=== PATIENT | male | born 1995 | race Two or more races ===

== ENCOUNTER 2022-12-05 02:56 | Emergency (ER) | payer MEDICAID, OTHER ==
[~2022-12-05] VITALS: Ht 172.7 cm; Wt 63.5 kg
[2022-12-05 03:00] VITALS: TEMP 98
[2022-12-05] MEDS ORDERED: NALO4SPR BNOSTRILS (06:17)
[2022-12-05 06:48] VITALS: BP 122/81; O2SAT 97
== END 2022-12-05 06:49 | disposition home or self-care (01) ==
LOC: ER 02:57
DX: T40.411A Poisoning by fentanyl or fentanyl analogs, accidental (unintentional), initial encounter (principal); R40.4 Transient alteration of awareness; Z59.00 Homelessness unspecified; Y92.410 Unspecified street and highway as the place of occurrence of the external cause